=== PATIENT | female | born 1940 | race African-American/Black ===

== ENCOUNTER → 2017-05-05 | Outpatient (CLI) | payer OTHER ==
[~2017-05-05] VITALS: Ht 167.6 cm; Wt 115.0 kg
[~2017-05-05] MED LIST: *RESP: ALBUTEROL 2.5 MG/3 ML NEB (PRN) PERIprocedural Use ONLY NEB ONE; CARV6.25 PO; CHLORHEXIDINE GLUCONATE 2 % 1 PACK (2 CLOTHS) TOPICAL PRN; CLON.1 PO; CLON.5 PO; COLA100C5 PO; DO NOT ADM ANY ANTICOAGULANT DRUGS PRN; DORZ2SOL7 RIGHT EYE; FAMOTIDINE 20 MG/2 ML VIAL ONE; LACTATED RINGER'S 1000 ML IV PRN; LATA.005%O EACH EYE; LIDOCAINE HCL 1% PF 5 ML SYRINGE OTHER ONE; LOSA100T PO; METOPROLOL TARTRATE 25 MG TAB PO PRN; NIFE60TA58 PO; NOVOLOGP2 SQ; NOVONP2 SQ; ONDANSETRON HCL 4 MG/2 ML VIAL IV ONE; PHENYLEPH/NS 1000 MCG/10 ML SYR IV ONE; PLAV75TA29 PO; POVIDONE IODINE 5% (ANTISEPSIS KIT) 4 APPLICATIONS EACH NARE PRN; PROPOFOL 200 MG/20 ML AMP IV ONE; SODIUM CHLORID 0.9% 500 ML IV PRN; SUGAMMADEX SODIUM 200 MG/2 ML VIAL IV PUSH ONE; VITA100018 PO; ePHEDrine/NS 25 MG/5 ML SYRINGE IV ONE; methylPREDNISolone SOD SUCC 125 MG/2 ML VIAL IV ONE; methylPREDNISolone SOD SUCC 125 MG/2 ML VIAL ONE
[2017-05-05 16:42] VITALS: BP 157/55; PULSE 84; RESP 20; TEMP 97.9; O2SAT 99
--- NOTE | 2017-05-05 16:43 | MR ---
cc: Steve Mcmahan MD 05/05/2017 INDICATION FOR PROCEDURE: Nausea and vomiting, abdominal pain, prior history of colon resection for colon cancer, previous right hemicolectomy, repeat colonoscopy being performed for surveillance. SPECIMENS: Photographs were taken. MEDICATIONS: Premedication administered by Anesthesiology. MONITORING: Was accomplished with pulse oximeter, EKG, blood pressure monitor. DESCRIPTION OF PROCEDURE: After informed consent was obtained and the procedure risks and benefits were explained, including the risks of bleeding, sepsis, perforation, risks of anesthesia, the patient was placed in the left lateral position and she was intubated to protect the airway. The video endoscope was inserted into the esophagus. The esophagus appeared to be normal. The stomach was entered. Gastric mucosa appeared to be normal throughout with minimal erythema in the antrum. Biopsies were taken to rule out H. pylori. In the retroflexed view, the cardia and fundus were unremarkable. The scope was passed through the pyloric ring into the first, second and third portion of the duodenum. The duodenal mucosa was unremarkable. The scope was removed. The patient was repositioned and colonoscopy was performed. The video colonoscope was inserted into the rectum and passed easily to the right hemicolectomy site. The anastomosis was free of pathology. The scope was gradually withdrawn. Preparation was excellent. The colonic mucosa throughout appeared to be normal. In the mid to distal transverse colon, a small 6 mm polyp was found and snared with the polypectomy snare without cautery and retrieved. In the rectum, the scope was retroflexed. No masses were seen. The patient tolerated the procedure well. She was returned to recovery room in stable condition. IMPRESSION: Essentially unremarkable upper endoscopy. Antral biopsies were taken. Colonoscopy revealed a patent anastomosis in the right colon and once small polyp was removed from the transverse colon. PLAN: Follow up on the pathology and biopsies taken today. Recommend repeat colonoscopy in 2-3 years. Follow up in clinic as an outpatient. We could consider gastric emptying study as well. MD SHANTI Banuelos/KALANI , 03:26 PM , 04:42 PM
--- NOTE | 2017-05-06 23:31 | EKG ---
Date Performed: 05/05/2017 Time Performed: 12:15:56 PTAGE: 76 years EKG: Sinus rhythm WITH OCCASIONAL SUPRAVENTRICULAR PREMATURE COMPLEXES MODERATE INTRAVENTRICULAR CONDUCTION DELAY MINI MAL VOLTAGE CRITERIA FOR LVH, CONSIDER NORMAL VARIANT BORDERLINE ECG PREVIOUS TRACING : 02/13/2015 14.08 Compared to prior tracing, previously Apaced with [facility] DOCTOR: Vel Marques Interpretating Date/Time 05/06/2017 23:30:06
== END ==
LOC: HEND 11:24
PROVIDERS: ATTEND Internal Medicine Gastroenterology
DX: R10.9 Unspecified abdominal pain (principal); R11.2 Nausea with vomiting, unspecified; Z85.038 Personal history of other malignant neoplasm of large intestine; Z90.49 Acquired absence of other specified parts of digestive tract; D12.3 Benign neoplasm of transverse colon; K63.89 Other specified diseases of intestine; R94.31 Abnormal electrocardiogram [ECG] [EKG]
CPT/HCPCS: 00813; 43239; 45385; 88305; 93005; 94664; J2370; J2405; J2930; J7613; 88312